=== PATIENT | female | born 1975 | race African-American/Black ===

== ENCOUNTER 2016-06-14 11:07 | Emergency (ER) | payer OTHER ==
[2016-06-14 11:14] VITALS: BP 128/72; PULSE 105; TEMP 97.6; BMI 33.2
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
[2016-06-14 14:17] LABS: MCH 29.2 pg (25.7-33.7); MCHC 32.7 g/dl (32.0-36.0); MEAN CELL VOLUME 89.2 fl (80-96); MEAN PLT VOLUME 8.8 fl (7.5-11.1); PLATELET COUNT 373 K/MM3 (134-434); RDW 13.1 % (11.6-15.6); WHITE BLOOD COUNT 11.7 K/mm3 (4.0-10.0)
[2016-06-14 14:20] LABS: URINE APPEARANCE CLEAR; URINE BILIRUBIN NEGATIVE (NEGATIVE); URINE BLOOD NEGATIVE (NEGATIVE); URINE COLOR LTYELLOW; URINE GLUCOSE (UA) 2+ (NEGATIVE); URINE KETONE NEGATIVE (NEGATIVE); URINE LEUK ESTERASE NEGATIVE (NEGATIVE); URINE NITRITE NEGATIVE (NEGATIVE); URINE PROTEIN NEGATIVE (NEGATIVE); URINE UROBILINOGEN NEGATIVE E.U./dl (0.2-1.0)
[2016-06-14 14:42] LABS: ALK PHOS 95 U/L (45-117); ANION GAP 9 (8-16); BILIRUBIN,TOTAL 0.4 mg/dL (0.2-1.0); CALCIUM 8.9 mg/dL (8.5-10.1); CO2 28 mmol/L (21-32); CREATININE 0.7 mg/dL (0.55-1.02); GLUCOSE,RANDOM 300 mg/dL (74-106); SGOT/AST 8 U/L (15-37); SGPT/ALT 13 U/L (12-78); TOT PROT 7.4 g/dl (6.4-8.2)
[2016-06-14] MEDS ORDERED: KETOROLAC TROMETHAMINE 60 MG/2 ML VIAL IM ONE (14:45)
[2016-06-14] MEDS ORDERED: KETOROLAC TROMETHAMINE 60 MG/2 ML VIAL ONE ×2 (14:46→14:47)
[2016-06-14 14:53] LABS: THYROID STIMULATING HORMONE < 0.01 uIU/ml (0.358-3.74)
[2016-06-14 15:50] LABS: FREE T4 1.64 ng/dl (0.76-1.46)
== END 2016-06-14 15:14 | disposition home or self-care (01) ==
LOC: JERFT 11:07
PROC: 3E0233Z Introduction of Anti-inflammatory into Muscle, Percutaneous Approach (ICD-10-PCS; principal; 2016-06-14)
DX: E05.90 Thyrotoxicosis, unspecified without thyrotoxic crisis or storm (principal); M79.1 Myalgia; Z87.891 Personal history of nicotine dependence; E11.9 Type 2 diabetes mellitus without complications
CPT/HCPCS: 36415; 80053; 81003; 84439; 84443; 84481; 84703; 85027; 99281-25

== ENCOUNTER 2018-02-06 11:38 | Emergency (ER) | payer OTHER ==
[2018-02-06 11:44] VITALS: BMI 34.0
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
[2018-02-06] MEDS ORDERED: METOCLOPRAMIDE HCL INJECTION 10 MG/2 ML VIAL IVPUSH ONE (12:26)
[2018-02-06] MEDS ORDERED: ACETAMINOPHEN 1000 MG/100 ML VIAL (NON FORMULARY) IVPB ONE (12:26)
[2018-02-06] MEDS ORDERED: SODIUM CHLORIDE 1,000 ML IV SCH (12:30)
[2018-02-06] MEDS ORDERED: METOCLOPRAMIDE HCL INJECTION 10 MG/2 ML VIAL ONE (12:35)
[2018-02-06] MEDS ORDERED: ACETAMINOPHEN INJECTION 100 ML IVPB ONE (12:35)
[2018-02-06 12:58] LABS: BASO % 0.8 % (0-2.0); EOS % 5.5 % (0-4.5); HEMATOCRIT 38.6 % (32.4-45.2); HEMOGLOBIN 12.6 GM/dL (10.7-15.3); MCH 28.8 pg (25.7-33.7); MCHC 32.7 g/dl (32.0-36.0); MEAN PLT VOLUME 8.8 fl (7.5-11.1); MONO % 7.5 % (3.8-10.2); NEUT % 63.2 % (42.8-82.8); PLATELET COUNT 392 K/MM3 (134-434); RBC 4.39 M/mm3 (3.60-5.2); RDW 13.1 % (11.6-15.6); WHITE BLOOD COUNT 11.9 K/mm3 (4.0-10.0)
[2018-02-06] MEDS ORDERED: morphine CARPU-JECT 4 MG/1 ML DISP.SYRIN IVPUSH ONE (13:17)
[2018-02-06 13:27] LABS: ALBUMIN 3.2 g/dl (3.4-5.0); ALK PHOS 90 U/L (45-117); ANION GAP 10 MMOL/L (8-16); BILIRUBIN,TOTAL 0.3 mg/dL (0.2-1); BLOOD UREA NITROGEN 9 mg/dL (7-18); CALCIUM 8.9 mg/dL (8.5-10.1); CHLORIDE 102 mmol/L (98-107); CO2 24 mmol/L (21-32); CREATININE 0.4 mg/dL (0.55-1.3); GLUCOSE,RANDOM 178 mg/dL (74-106); POTASSIUM 4.2 mmol/L (3.5-5.1); SGOT/AST 21 U/L (15-37); SGPT/ALT 19 U/L (13-61); SODIUM 136 mmol/L (136-145); TOT PROT 7.8 g/dl (6.4-8.2)
[2018-02-06 13:36] LABS: ERYTHROCYTE SEDIMENTATION RATE 49 mm/hr (0-20)
[2018-02-06] MEDS ORDERED: morphine SULFATE 4 MG/ML VIAL ONE (14:12)
[2018-02-06 15:41] VITALS: BP 128/80; PULSE 95; TEMP 98.1
== END 2018-02-06 15:51 | disposition home or self-care (01) ==
LOC: JER 11:38
PROC: 3E033NZ Introduction of Analgesics, Hypnotics, Sedatives into Peripheral Vein, Percutaneous Approach (ICD-10-PCS; principal; 2018-02-06)
PROC: 3E033GC Introduction of Other Therapeutic Substance into Peripheral Vein, Percutaneous Approach (ICD-10-PCS; 2018-02-06)
PROC: 3E0337Z Introduction of Electrolytic and Water Balance Substance into Peripheral Vein, Percutaneous Approach (ICD-10-PCS; 2018-02-06)
DX: E05.90 Thyrotoxicosis, unspecified without thyrotoxic crisis or storm (principal)
CPT/HCPCS: 36415; 70450-TC; 72125-TC; 80053; 84443; 84703; 85025; 85651; 86140; 99284-25; J0131; J7030

== ENCOUNTER 2019-12-02 23:48 | Emergency (ER) | payer OTHER ==
[2019-12-03 00:44] VITALS: TEMP 98.9; BMI 34.8
--- NOTE | 2019-12-03 01:02 | PDOC ---
*Physical Exam - Vital Signs Last Vital Signs Temp Pulse Resp BP Pulse Ox 98.9 F 100 H 18 118/77 100 12/03/19 00:39 12/03/19 00:39 12/03/19 00:39 12/03/19 00:39 12/03/19 00:39 ED Treatment Course - LABORATORY CBC & Chemistry Diagram: 12/03/19 02:30 12/03/19 02:30 Medical Decision Making - Medical Decision Making 12/03/19 01:02 Patient seen by the advanced practice provider under my supervision. Ancillary testing reviewed as necessary. I agree with plan as outlined by the advanced practice provider. Discharge - Discharge Information Problems reviewed: Yes Clinical Impression/Diagnosis: Rheumatoid arthritis Qualifiers: Rheumatoid arthritis location: hand Rheumatoid factor presence: with rheumatoid factor Laterality: bilateral Qualified Code(s): M05.741 - Rheumatoid arthritis with rheumatoid factor of right hand without organ or systems involvement Condition: Fair Disposition: HOME - Follow up/Referral Referrals: Bryan Connors [Non Staff, Medical] - Call tomorrow Jasiel Faust MD [Primary Care Provider] - - Patient Discharge Instructions Patient Printed Discharge Instructions: Rheumatoid Arthritis Additional Instructions: Please follow-up with your information assoc later on today. Continue the pain medication written by your information assoc. Return to the emergency room for any worsening symptoms - Post Discharge Activity Work/Back to School Note: Back to Work
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
[2019-12-03] MEDS ORDERED: KETOROLAC TROMETHAMINE 30 MG/1 ML VIAL IVPUSH ONE (01:48)
[2019-12-03] MEDS ORDERED: KETOROLAC TROMETHAMINE 30 MG/1 ML VIAL ONE (02:14)
[2019-12-03 03:00] LABS: BASO % 0.8 % (0-2.0); EOS % 9.6 % (0-4.5); HEMOGLOBIN 12.2 GM/dL (10.7-15.3); LYMPH % 17.2 % (8-40); MCHC 33.1 g/dl (32.0-36.0); MEAN CELL VOLUME 96.8 fl (80-96); MEAN PLT VOLUME 8.5 fl (7.5-11.1); MONO % 7.4 % (3.8-10.2); PLATELET COUNT 535 K/MM3 (134-434); RBC 3.82 M/mm3 (3.60-5.2); RDW 14.7 % (11.6-15.6); WHITE BLOOD COUNT 13.6 K/mm3 (4.0-10.0)
[2019-12-03] MEDS ORDERED: ACETAMINOPHEN 1000 MG/100 ML VIAL (NON FORMULARY) IVPB ONE (03:26)
[2019-12-03 03:27] LABS: ALBUMIN 3.1 g/dl (3.4-5.0); BILIRUBIN,TOTAL 0.3 mg/dL (0.2-1); CALCIUM 8.9 mg/dL (8.5-10.1); CREATININE 0.6 mg/dL (0.55-1.3); POTASSIUM 4.1 mmol/L (3.5-5.1); TOT PROT 7.8 g/dl (6.4-8.2)
[2019-12-03] MEDS ORDERED: ACETAMINOPHEN INJECTION 100 ML IVPB ONE (03:36)
[2019-12-03 04:07] LABS: ERYTHROCYTE SEDIMENTATION RATE 88 mm/hr (0-20)
[2019-12-03 04:26] VITALS: BP 120/71; PULSE 85
== END 2019-12-03 04:26 | disposition home or self-care (01) ==
LOC: JER 23:48
PROC: 3E0233Z Introduction of Anti-inflammatory into Muscle, Percutaneous Approach (ICD-10-PCS; principal; 2019-12-03)
PROC: 3E033GC Introduction of Other Therapeutic Substance into Peripheral Vein, Percutaneous Approach (ICD-10-PCS; 2019-12-03)
DX: M05.741 Rheumatoid arthritis with rheumatoid factor of right hand without organ or systems involvement (principal)
CPT/HCPCS: 36415; 73110-TC-LT-FY; 73110-TC-RT-FY; 73130-TC-LT-FY; 73130-TC-RT-FY; 80053; 84443; 85025; 85651; 86140; 99284-25; J0131

== ENCOUNTER 2020-02-16 08:51 | Emergency (ER) | payer OTHER ==
[2020-02-16 09:44] VITALS: BP 112/65; PULSE 85; TEMP 98.7; BMI 34.8
[2020-02-16] MEDS ORDERED: oxyCODONE HCL 5 MG TABLET PO ONE (10:13)
[2020-02-16] MEDS ORDERED: ACETAMINOPHEN 325 MG TABLET (FP) PO ONE (10:13)
[2020-02-16] MEDS ORDERED: ACETAMINOPHEN 325 MG TABLET (FP) ONE (10:43)
[2020-02-16] MEDS ORDERED: oxyCODONE HCL 5 MG TABLET ONE (10:44)
== END 2020-02-16 11:00 | disposition home or self-care (01) ==
LOC: JER 08:51
DX: M25.562 Pain in left knee (principal)
CPT/HCPCS: 99284-25

== ENCOUNTER 2021-09-07 15:31 | Inpatient (IN) | payer OTHER ==
[2021-09-07 15:49] VITALS: BMI 35.1
[2021-09-07] MEDS ORDERED: LIDOCAINE 5% TOPICAL PATCH ONE (16:54)
[2021-09-07] MEDS ORDERED: LIDOCAINE 5% TOPICAL PATCH TP ONE (16:54)
[2021-09-07 21:12] LABS: BASO % 0.8 % (0-2.0); EOS % 3.3 % (0-4.5); HEMATOCRIT 31.2 % (32.4-45.2); HEMOGLOBIN 9.6 GM/dL (10.7-15.3); LYMPH % 26.7 % (8-40); MCH 25.2 pg (25.7-33.7); MCHC 30.7 g/dl (32.0-36.0); MEAN CELL VOLUME 82.3 fl (80-96); MONO % 8.4 % (3.8-10.2); NEUT % 60.8 % (42.8-82.8); PLATELET COUNT 629 10^3/uL (134-434); RDW 16.7 % (11.6-15.6); WHITE BLOOD COUNT 12.3 K/mm3 (4.0-10.0)
[2021-09-07 21:17] LABS: PROTHROMBIN TIME (PATIENT) 11.5 SEC (9.7-13.0)
[2021-09-07 21:20] LABS: ACTIVATED PTT 29.6 SECONDS (25.2-36.5)
[2021-09-07 21:33] LABS: ALBUMIN 3.3 g/dl (3.4-5.0); CALCIUM 8.8 mg/dL (8.5-10.1)
[2021-09-07 21:34] LABS: BLOOD UREA NITROGEN 21.6 mg/dL (7-18)
[2021-09-07 21:38] LABS: BILIRUBIN,TOTAL 0.1 mg/dL (0.2-1)
[2021-09-07] MEDS ORDERED: LIDOCAINE PATCH REMOVAL MC SCH (22:00)
[2021-09-07] MEDS ORDERED: SULFAMETHOXAZOLE/TRIMETHOPRIM 800MG/160MG D.S. TABLET PO ONE (23:45)
[2021-09-08] MEDS ORDERED: ENOXAPARIN NA (PORCINE) 100 MG/1 ML DISP.SYRIN SQ ONE (00:35)
[2021-09-08] MEDS ORDERED: SULFAMETHOXAZOLE/TRIMETHOPRIM 800MG/160MG D.S. TABLET ONE (00:40)
[2021-09-08] MEDS: ENOXAPARIN NA (PORCINE) 100 MG/1 ML DISP.SYRIN SQ SCH ×2 (00:45→11:25)
[2021-09-08 01:21] LABS: PH,URINE 6.5 (5.0-8.0); URINE APPEARANCE CLEAR; URINE BILIRUBIN NEGATIVE (NEGATIVE); URINE COLOR YELLOW; URINE GLUCOSE (UA) NEGATIVE (NEGATIVE); URINE KETONE NEGATIVE (NEGATIVE); URINE LEUK ESTERASE NEGATIVE (NEGATIVE); URINE NITRITE NEGATIVE (NEGATIVE); URINE PROTEIN NEGATIVE (NEGATIVE); URINE UROBILINOGEN 0.2 mg/dL (0.2-1.0)
[2021-09-08 07:05] LABS: EOS % 3.5 % (0-4.5); HEMOGLOBIN 9.6 GM/dL (10.7-15.3); LYMPH % 20.5 % (8-40); MCH 26.4 pg (25.7-33.7); MCHC 31.9 g/dl (32.0-36.0); MEAN CELL VOLUME 82.8 fl (80-96); MEAN PLT VOLUME 8.3 fl (7.5-11.1); MONO % 6.3 % (3.8-10.2); NEUT % 68.7 % (42.8-82.8); PLATELET COUNT 626 10^3/uL (134-434); RBC 3.62 M/mm3 (3.60-5.2); RDW 16.9 % (11.6-15.6); WHITE BLOOD COUNT 10.2 K/mm3 (4.0-10.0)
[2021-09-08 07:12] LABS: ACTIVATED PTT 32.8 SECONDS (25.2-36.5)
[2021-09-08] MEDS ORDERED: SODIUM CHLORIDE 1,000 ML IV STA (07:43)
[2021-09-08] MEDS: INSULIN SLIDING SCALE (NOVOLOG) 1 VIAL SQ SCH ×2 (07:45→12:05)
[2021-09-08 07:51] LABS: CALCIUM 8.7 mg/dL (8.5-10.1)
[2021-09-08 07:52] LABS: CREATININE 0.7 mg/dL (0.55-1.3); PHOSPHOROUS 3.6 mg/dL (2.5-4.9)
[2021-09-08 07:53] LABS: BILIRUBIN,TOTAL 0.4 mg/dL (0.2-1); TOT PROT 7.4 g/dl (6.4-8.2)
[2021-09-08 08:44] LABS: INR 1.03 (0.83-1.09); PROTHROMBIN TIME (PATIENT) 11.9 SEC (9.7-13.0)
[2021-09-08 09:23] VITALS: TEMP 97.2
[2021-09-08] MEDS ORDERED: ASPIRIN 81 MG CHEWABLE TABLETS PO SCH (10:00)
[2021-09-08] MEDS ORDERED: ENOXAPARIN NA (PORCINE) 100 MG/1 ML DISP.SYRIN SQ SCH (10:00)
[2021-09-08] MEDS ORDERED: SULFAMETHOXAZOLE/TRIMETHOPRIM 800MG/160MG D.S. TABLET PO SCH ×2 (10:00)
[2021-09-08] MEDS ORDERED: CELECOXIB 200 MG CAPSULE PO SCH (10:00)
[2021-09-08 11:57] VITALS: BP 105/70; PULSE 90
== END 2021-09-08 12:40 | disposition left against medical advice (07) | DRG 301 ==
LOC: JER 15:31 → JERBED 20:38 → J5S 09-08 10:34
PROVIDERS: ADMIT Internal Medicine; ATTEND Internal Medicine
DX: I82.621 Acute embolism and thrombosis of deep veins of right upper extremity (principal); E11.65 Type 2 diabetes mellitus with hyperglycemia; D64.9 Anemia, unspecified; E66.9 Obesity, unspecified; Z68.35 Body mass index [BMI] 35.0-35.9, adult; Z96.641 Presence of right artificial hip joint; E05.90 Thyrotoxicosis, unspecified without thyrotoxic crisis or storm
CPT/HCPCS: 0241U-QW; 36415; 80053; 80061; 81003; 82962; 83735; 84100; 84436; 84443; 84703; 85025; 85610; 85730; 93005; 93010; 93971; 99285-25

== ENCOUNTER 2022-06-21 11:51 | Emergency (ER) | payer OTHER ==
[2022-06-21 12:15] VITALS: RESP 18; BMI 33.2
[2022-06-21] MEDS ORDERED: diazePAM CARPU-JECT 10 MG/2 ML DISP.SYRIN IVPUSH ONE (13:08)
[2022-06-21] MEDS ORDERED: SODIUM CHLORIDE 1,000 ML IV STA (13:08)
[2022-06-21] MEDS ORDERED: diazePAM CARPU-JECT 10 MG/2 ML DISP.SYRIN ONE (14:20)
[2022-06-21] MEDS ORDERED: METOCLOPRAMIDE HCL INJECTION 10 MG/2 ML VIAL IVPUSH ONE (15:45)
[2022-06-21] MEDS ORDERED: METOCLOPRAMIDE HCL INJECTION 10 MG/2 ML VIAL ONE (16:08)
[2022-06-21] MEDS ORDERED: KETOROLAC TROMETHAMINE 15 MG/ML VIAL IVPUSH ONE (16:26)
[2022-06-21 16:37] LABS: BASO % 1.4 % (0-2.0); EOS % 3.7 % (0-4.5); HEMATOCRIT 42.2 % (32.4-45.2); HEMOGLOBIN 13.2 GM/dL (10.7-15.3); LYMPH % 37.8 % (8-40); MCHC 31.2 g/dl (32.0-36.0); MEAN CELL VOLUME 80.1 fl (80-96); MEAN PLT VOLUME 10.4 fl (7.5-11.1); NEUT % 45.1 % (42.8-82.8); PLATELET COUNT 307 10^3/uL (134-434); RBC 5.27 M/mm3 (3.60-5.2); WHITE BLOOD COUNT 5.6 K/mm3 (4.0-10.0)
[2022-06-21] MEDS ORDERED: KETOROLAC TROMETHAMINE 15 MG/ML VIAL ONE (16:47)
[2022-06-21 16:48] LABS: PROTHROMBIN TIME (PATIENT) 11.6 SEC (9.7-13.0)
[2022-06-21 16:49] LABS: ALBUMIN 3.4 g/dl (3.4-5.0); BLOOD UREA NITROGEN 9.7 mg/dL (7-18); CALCIUM 8.5 mg/dL (8.5-10.1)
[2022-06-21 16:52] LABS: CREATININE 0.6 mg/dL (0.55-1.3)
[2022-06-21 16:54] LABS: BILIRUBIN,TOTAL 0.3 mg/dL (0.2-1); TOT PROT 7.1 g/dl (6.4-8.2)
[2022-06-21 17:04] LABS: PH,URINE 5.5 (5.0-8.0); URINE APPEARANCE CLEAR; URINE BILIRUBIN NEGATIVE (NEGATIVE); URINE COLOR YELLOW; URINE GLUCOSE (UA) 3+ (NEGATIVE); URINE KETONE 1+ (NEGATIVE); URINE LEUK ESTERASE NEGATIVE (NEGATIVE); URINE NITRITE NEGATIVE (NEGATIVE); URINE PROTEIN NEGATIVE (NEGATIVE); URINE UROBILINOGEN 0.2 mg/dL (0.2-1.0)
[2022-06-21 17:57] VITALS: BP 110/72; PULSE 89; TEMP 98.1
== END 2022-06-21 18:20 | disposition home or self-care (01) ==
LOC: JER 11:51
DX: U07.1 COVID-19 (principal); H81.11 Benign paroxysmal vertigo, right ear
CPT/HCPCS: 0241U-QW; 36415; 70450-TC; 80053; 81003; 84484; 84703; 85025; 85610; 87086; 93005; 93010; 99285-25

== ENCOUNTER 2022-12-07 16:03 | Emergency (ER) | payer OTHER ==
[2022-12-07 16:13] VITALS: TEMP 97.5; BMI 32.5
[2022-12-07] MEDS ORDERED: ACETAMINOPHEN 1000 MG/100 ML BAG IVPB ONE (16:54)
[2022-12-07] MEDS ORDERED: SODIUM CHLORIDE 0.9% 500 ML INFUS.BAG IV ONE (17:01)
[2022-12-07] MEDS ORDERED: ONDANSETRON 4 MG/2 ML VIAL IVPUSH ONE (17:01)
[2022-12-07] MEDS ORDERED: morphine CARPU-JECT 4 MG/1 ML DISP.SYRIN IVPUSH ONE (17:01)
[2022-12-07] MEDS ORDERED: ONDANSETRON 4 MG/2 ML VIAL ONE (17:28)
[2022-12-07] MEDS ORDERED: ACETAMINOPHEN INJECTION 100 ML IVPB ONE (17:28)
[2022-12-07] MEDS ORDERED: morphine SULFATE 4 MG/ML VIAL ONE (17:28)
[2022-12-07 18:00] LABS: BASO % 1.2 % (0-2.0); EOS % 2.2 % (0-4.5); HEMOGLOBIN 14.3 GM/dL (10.7-15.3); LYMPH % 16.4 % (8-40); MCH 28.7 pg (25.7-33.7); MCHC 32.4 g/dl (32.0-36.0); MEAN CELL VOLUME 88.6 fl (80-96); MEAN PLT VOLUME 9.3 fl (7.5-11.1); MONO % 9.2 % (3.8-10.2); PLATELET COUNT 320 10^3/uL (134-434); RBC 4.97 M/mm3 (3.60-5.2); RDW 16.1 % (11.6-15.6)
[2022-12-07 18:16] LABS: POTASSIUM 4.7 mmol/L (3.5-5.1)
[2022-12-07 18:18] LABS: CALCIUM 9.1 mg/dL (8.5-10.1)
[2022-12-07 18:19] LABS: ALBUMIN 3.9 g/dl (3.4-5.0); BLOOD UREA NITROGEN 13.6 mg/dL (7-18)
[2022-12-07 18:22] LABS: CREATININE 0.6 mg/dL (0.55-1.3)
[2022-12-07 18:23] LABS: TOT PROT 7.3 g/dl (6.4-8.2)
[2022-12-07 18:24] LABS: BILIRUBIN,TOTAL 0.5 mg/dL (0.2-1)
[2022-12-07 20:46] LABS: URINE APPEARANCE CLEAR; URINE BILIRUBIN NEGATIVE (NEGATIVE); URINE COLOR YELLOW; URINE GLUCOSE (UA) 3+ (NEGATIVE); URINE KETONE 2+ (NEGATIVE); URINE LEUK ESTERASE NEGATIVE (NEGATIVE); URINE NITRITE NEGATIVE (NEGATIVE); URINE PROTEIN NEGATIVE (NEGATIVE); URINE UROBILINOGEN 0.2 mg/dL (0.2-1.0)
[2022-12-07 22:10] VITALS: BP 93/57; PULSE 90; RESP 16
[2022-12-07] MEDS ORDERED: FAMOTIDINE 20 MG/50 ML IVPB 20 MG/50 ML MG IVPB ONE ×2 (22:15→22:21)
[2022-12-07] MEDS ORDERED: MAG HYDROX/AL HYDROX/SIMETH 30 ML UNIT-DOSE CUP PO ONE (22:15)
[2022-12-07] MEDS ORDERED: MAG HYDROX/AL HYDROX/SIMETH 30 ML UNIT-DOSE CUP ONE (22:21)
== END 2022-12-07 22:42 | disposition home or self-care (01) ==
LOC: JER 16:03
PROC: 3E033GC Introduction of Other Therapeutic Substance into Peripheral Vein, Percutaneous Approach (ICD-10-PCS; principal; 2022-12-07)
PROC: 3E033GC Introduction of Other Therapeutic Substance into Peripheral Vein, Percutaneous Approach (ICD-10-PCS; 2022-12-07)
PROC: 3E033GC Introduction of Other Therapeutic Substance into Peripheral Vein, Percutaneous Approach (ICD-10-PCS; 2022-12-07)
DX: R10.13 Epigastric pain (principal); R11.10 Vomiting, unspecified; R15.2 Fecal urgency; R10.30 Lower abdominal pain, unspecified
CPT/HCPCS: 36415; 71045-TC-FY; 74177-TC; 80053; 81003; 83605; 83690; 84484; 84702; 84703; 85025; 87086; 93005; 93010; 99285-25; Q9967

== ENCOUNTER 2023-01-09 22:17 | Emergency (ER) | payer OTHER ==
[2023-01-09 22:31] VITALS: BMI 34.0
[2023-01-10] MEDS ORDERED: SODIUM CHLORIDE 1,000 ML IV STA (00:11)
[2023-01-10] MEDS ORDERED: FAMOTIDINE 20 MG/50 ML IVPB 20 MG/50 ML MG IVPB ONE ×2 (00:11→00:23)
[2023-01-10] MEDS ORDERED: ACETAMINOPHEN 1000 MG/100 ML BAG IVPB ONE (00:11)
[2023-01-10] MEDS ORDERED: ONDANSETRON 4 MG/2 ML VIAL IVPUSH ONE (00:11)
[2023-01-10] MEDS ORDERED: ONDANSETRON 4 MG/2 ML VIAL ONE (00:23)
[2023-01-10] MEDS ORDERED: ACETAMINOPHEN INJECTION 100 ML IVPB ONE (00:23)
[2023-01-10 01:24] LABS: VENOUS BASE EXCESS 0.1 mmol/L (-2-2); VENOUS O2 SATURATION 94.9 % (70-80); VENOUS PCO2 41.1 mmHg (38-52); VENOUS PH 7.401 (7.310-7.410)
[2023-01-10 01:27] LABS: BASO % 0.5 % (0-2.0); EOS % 2.6 % (0-4.5); HEMATOCRIT 46.1 % (32.4-45.2); LYMPH % 13.9 % (8-40); MCH 29.8 pg (25.7-33.7); MCHC 32.5 g/dl (32.0-36.0); MEAN CELL VOLUME 91.7 fl (80-96); MEAN PLT VOLUME 9.4 fl (7.5-11.1); MONO % 9.3 % (3.8-10.2); NEUT % 73.7 % (42.8-82.8); PLATELET COUNT 307 10^3/uL (134-434); RBC 5.02 M/mm3 (3.60-5.2); RDW 15.3 % (11.6-15.6); WHITE BLOOD COUNT 8.7 K/mm3 (4.0-10.0)
[2023-01-10 01:48] LABS: BLOOD UREA NITROGEN 13.6 mg/dL (7-18); CALCIUM 9.2 mg/dL (8.5-10.1); MAGNESIUM 1.9 mg/dL (1.8-2.4); POTASSIUM 4.1 mmol/L (3.5-5.1)
[2023-01-10 01:50] LABS: CREATININE 0.6 mg/dL (0.55-1.3); PHOSPHOROUS 4.3 mg/dL (2.5-4.9)
[2023-01-10 01:51] LABS: BILIRUBIN,TOTAL 0.6 mg/dL (0.2-1); PH,URINE 5.5 (5.0-8.0); TOT PROT 7.5 g/dl (6.4-8.2); URINE APPEARANCE CLEAR; URINE BILIRUBIN NEGATIVE (NEGATIVE); URINE COLOR YELLOW; URINE GLUCOSE (UA) 3+ (NEGATIVE); URINE KETONE 3+ (NEGATIVE); URINE LEUK ESTERASE NEGATIVE (NEGATIVE); URINE NITRITE NEGATIVE (NEGATIVE); URINE PROTEIN NEGATIVE (NEGATIVE); URINE UROBILINOGEN 0.2 mg/dL (0.2-1.0)
[2023-01-10 07:00] VITALS: BP 97/59; PULSE 80; RESP 19; TEMP 97.8
== END 2023-01-10 08:10 | disposition home or self-care (01) ==
LOC: JER 22:17
PROC: 3E033GC Introduction of Other Therapeutic Substance into Peripheral Vein, Percutaneous Approach (ICD-10-PCS; principal; 2023-01-10)
PROC: 3E033NZ Introduction of Analgesics, Hypnotics, Sedatives into Peripheral Vein, Percutaneous Approach (ICD-10-PCS; 2023-01-10)
PROC: 3E033GC Introduction of Other Therapeutic Substance into Peripheral Vein, Percutaneous Approach (ICD-10-PCS; 2023-01-10)
PROC: 3E0337Z Introduction of Electrolytic and Water Balance Substance into Peripheral Vein, Percutaneous Approach (ICD-10-PCS; 2023-01-10)
DX: R10.30 Lower abdominal pain, unspecified (principal); R11.2 Nausea with vomiting, unspecified; R19.7 Diarrhea, unspecified; K52.9 Noninfective gastroenteritis and colitis, unspecified; Z20.822 Contact with and (suspected) exposure to COVID-19
CPT/HCPCS: 0241U-QW; 36415; 74177-TC; 80053; 81003; 82010; 82803; 83690; 83735; 84100; 84484; 85025; 87086; 93005; 93010; 99285-25; Q9967

== ENCOUNTER 2023-07-04 13:05 | Emergency (ER) | payer OTHER ==
[2023-07-04 13:12] VITALS: BP 100/70; PULSE 100; RESP 18; TEMP 97.8; BMI 31.3
== END 2023-07-04 14:29 | disposition home or self-care (01) ==
LOC: JERFT 13:05
DX: R05.9 Cough, unspecified (principal); R07.9 Chest pain, unspecified; J06.9 Acute upper respiratory infection, unspecified
CPT/HCPCS: 71046-TC-FY; 99283-25